=== PATIENT | female | born 1995 | race Two or more races ===

== ENCOUNTER 2023-04-28 15:07 | Emergency (ER) | payer OTHER ==
[2023-04-28 15:25] VITALS: BP 132/74
[2023-04-28] MEDS ORDERED: TETANUS/DIPHTHERIA/PERTUSSIS 0.5 ML SYRINGE IM ONE (15:28)
[2023-04-28] MEDS ORDERED: BUFFERED LIDOCAINE 10 ML SYRINGE SUBQ STA (15:28)
--- NOTE | 2023-04-28 15:29 | ED Physician Documentation ---
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 No other injuries.) PD PAST MEDICAL HISTORY - Present Medications Home Medications: Ambulatory Orders Medication Instructions Recorded Confirmed FLUoxetine [PROzac] 1 cap PO DAILY 04/28/23 04/28/23 - Allergies Allergies/Adverse Reactions: Allergies Allergy/AdvReac Type Severity Reaction Status Date / Time No Known Drug Allergies Allergy Verified 04/28/23 15:21 PD ED PE NORMAL - Vitals Vital signs reviewed: Yes - General General: Alert and oriented X 3, No acute distress - Extremities Extremities: Other (On the dorsum of the left thumb just distal to the MCP there is about a 1 cm shallow laceration and subcutaneous fat running longitudinally. No distal neurovascular compromise or evidence of tendon injury.) - Neuro Neuro: Alert and oriented X 3, Normal speech Results - Vitals Vitals: Vital Signs - 24 hr 04/28/23 15:12 Temperature 36.3 C L Heart Rate 76 Respiratory 18 Rate Blood Pressure 132/74 H O2 Saturation 99 Oxygen O2 Source Room air Procedures - Laceration (location) L thumb Length in cm: 1 Wound type: Linear, Into subcut fat Neurovascular status: Sensory intact, Motor intact Tendon involvement: Tendon intact Anesthesia: Lidocaine 1%, With bicarb Wound preparation: Irrigated copiously NS Skin layer closure: Nylon, Interrupted, Size #-0 - enter number (5-0), Sutures - enter # (3) Other: Patient tolerated well, No complications, Neurovascular intact, Tetanus booster given PD Medical Decision Making - ED course Complexity details: other (L&I paperwork [id number] completed and submitted.) Departure - Departure Disposition: 01 Home, Self Care Clinical Impression: Laceration of left thumb Qualifiers: Encounter type: initial encounter Damage to nail status: without damage Foreign body presence: without foreign body Qualified Code(s): S61.012A - Laceration without foreign body of left thumb without damage to nail, initial encounter Condition: Good Record reviewed to determine appropriate education?: Yes Instructions: ED Laceration Hand Comments: Come back for any signs of infection which would include: Redness, swelling, drainage, increased pain, or fevers. You can wash it soap and water. Keep it covered and moist with bacitracin ointment which is available over the counter; avoid neosporin. Follow-up with your physician in about 14 days for suture removal. Forms: Activity restrictions
== END 2023-04-28 16:05 | disposition home or self-care (01) ==
LOC: ED 15:07
DX: S61.012A Laceration without foreign body of left thumb without damage to nail, initial encounter (principal); W27.8XXA Contact with other nonpowered hand tool, initial encounter; Y93.89 Activity, other specified; Y92.511 Restaurant or cafe as the place of occurrence of the external cause; Y99.0 Civilian activity done for income or pay
CPT/HCPCS: 1040M; 12001; 90471; 90715; 99283

== ENCOUNTER 2024-06-11 15:45 | Outpatient (CLI) | payer OTHER ==
--- NOTE | 2024-06-12 16:30 | XRAY Report ---
PROCEDURE: Toe(s) 2+V RT INDICATIONS: CONTUSION OF RIGHT GREAT TOE TECHNIQUE: 3 views of the first toe(s) acquired. COMPARISON: None. FINDINGS: Bones: No fractures or dislocations. Joint spaces are maintained. No suspicious bony lesions. Soft tissues: No suspicious soft tissue densities. No radiopaque foreign body. IMPRESSION: No acute bony abnormality. If clinical symptoms persist, consider repeat imaging in 10-14 days versus cross-sectional imaging Reviewed by: Leland Armstrong MD on 06/12/2024 4:28 PM PDT Approved by: Leland Armstrong MD on 06/12/2024 4:28 PM PDT Station ID: [id number]
== END 2024-06-11 16:00 | disposition home or self-care (01) ==
LOC: DI.N 15:45
PROVIDERS: ATTEND Physician Assistant Medical
DX: S90.111A Contusion of right great toe without damage to nail, initial encounter (principal)